=== PATIENT | male | born 1970 | race Caucasian/White ===

== ENCOUNTER → 2018-10-30 14:42 | Outpatient (CLI) | payer OTHER ==
--- NOTE | 2018-11-03 10:07 | ST ---
PATIENT:KARYN NOGUERA MEDICAL RECORD: [id number] SEX: M LOCATION:[facility] ORDER #: ADMISSION DATE: 10/30/18 AGE OF PATIENT: 48 REFERRING PHYSICIAN: INTERPRETING PHYSICIAN: ALENA LOERA MD DATE OF SERVICE: 10/30/2018 PROCEDURE: Treadmill stress test. Baseline ECG is normal. He exercised for 10 minutes on Adin protocol. Maximum heart rate 167 beats per minute, greater than 85% of max predicted. No ECG changes of ischemia. No symptoms of ischemia. Normal blood pressure response to exercise. No arrhythmias noted. Good exercise tolerance for age. TRANSINT:[id number] Voice Confirmation ID: [id number] DOCUMENT ID: [id number] ALNEA LOERA MD at 1007 CC: [id number] DICTATION DATE: 11/01/18 1052 [employer] SUPERVISOR: 11/01/18 1346 DEP CLI 10/30/[address] [address]
== END | disposition home or self-care (01) ==
LOC: D.HCCARDIO 14:00
PROVIDERS: ATTEND Internal Medicine Interventional Cardiology
DX: I20.9 Angina pectoris, unspecified (principal)